=== PATIENT | female | born 1960 | race Caucasian/White ===

== ENCOUNTER 2020-03-28 12:41 | Emergency (ER) | payer OTHER, SELFPAY ==
--- NOTE | ~2020-03-28 | CT_ITS ---
EXAMINATION: CT brain wo con INDICATION: Headache COMPARISON: 06/26/2018 TECHNIQUE: Standard unenhanced head CT. The dose-length product (DLP) was 605.33 mGy-cm. The mA was a djusted according to patient size. Iterative reconstruction technique was employed. FINDINGS: There is no intracranial hemorrhage, acute infarction, or abnormal mass lesion. The ventric les are normal. There is no abnormal mass effect or midline shift. The cunningham-white matter differentiat ion is normal. The basal cisterns are patent. The orbits are normal. The paranasal sinuses, mastoids and calvarium are normal. IMPRESSION: 1. No acute intracranial abnormality. Reviewed, dictated and finalized at location A.
[2020-03-28 12:39] VITALS: BP 157/104; PULSE 89; RESP 18; TEMP 37; O2SAT 96
--- NOTE | 2020-03-28 12:43 | ECG_ITS ---
Measurements Intervals [place] Rate: 77 P: 74 LA: 137 QRS: 57 QRSD: 70 T: 99 QT: 405 QTc: 459 Interpretive Statements SINUS RHYTHM EARLY PRECORDIAL R/S TRANSITION NONSPECIFIC T-WAVE ABNORMALITY- HIGH LATERAL LEADS BORDERLINE ECG Electronically Signed On 03-28-2020 13:47:28 CDT by Adrian Spain D.O.
[2020-03-28 12:57] LABS: Basophils Percent Auto 0.7 % (0.2-1.2); Eosinophils Absolute Auto 0.1 K/mm3 (0-0.3); Hematocrit 42.9 % (37.0-47.0); Immature Granulocyte Absolute 0.01 K/mm3 (0.00-0.031); Immature Granulocyte Percent A 0.2 % (0-0.5); Lymphocytes Absolute Auto 2.02 K/mm3 (0.9-3.2); Lymphocytes Percent Auto 36.7 % (18.3-44.2); Mean Corpuscular HGB Conc 32.6 g/dl (32-36); Mean Corpuscular Hemoglobin 32.8 pg (26-34); Mean Corpuscular Volume 100.5 fl (80-100); Mean Platelet Volume 10.1 fl (7.4-10.4); Monocytes Absolute Auto 0.3 K/mm3 (0.1-0.6); Neutrophils Percent Auto 54.4 % (45.5-73.1); Platelet Count Result 264 k/mm3 (150-375); Red Blood Count 4.27 M/mm3 (4.2-5.4); Red Cell Distribution Width 14.5 % (11.5-14.5); White Blood Count 5.5 K/mm3 (4.5-10.0)
[2020-03-28] MEDS: SODIUM CHLORIDE 0.9% IV 1,000 ML 999 ML IV CONT (12:57)
[2020-03-28] MEDS: FAMOTIDINE 20 MG/2 ML VIAL IV PUSH (12:57)
[2020-03-28] MEDS: ONDANSETRON INJ 4 MG/2 ML VIAL IV PUSH (12:57)
[2020-03-28 13:06] LABS: INR 0.9; Prothrombin Time 11.6 Seconds (11.1-14.7)
[2020-03-28 13:08] LABS: Partial Thromboplastin Time 24.6 SECONDS (22.3-36.8)
[2020-03-28 13:09] LABS: Alanine Aminotransferase 103 U/L (4-35); Albumin Level 4.6 g/dL (3.5-5.1); Alkaline Phosphatase 191 U/L (38-126); Anion Gap 16.6 mmol/L (7-16); Aspartate Amino Transferase 174 U/L (14-36); Bilirubin,Total 0.3 mg/dL (0.2-1.3); Blood Urea Nitrogen 7 mg/dL (7-17); Calcium 8.6 mg/dL (8.4-10.2); Carbon Dioxide 24 mmol/L (22-30); Chloride 101 mmol/L (98-107); Estimated CRCL calculation 81 ml/min; Estimated Glomerular Filt Rate > 60; Glucose 102 mg/dL (65-105); Lipase 129 U/L (23-300); Potassium 3.6 mmol/L (3.4-5.0); Sodium 138 mmol/L (137-145)
--- NOTE | 2020-03-28 14:15 | ED.ALCOHOL ---
HPI - Alcohol General Chief Complaint: Alcohol <Kunal Pham PA-C - Last Filed: 03/28/20 16:01> Stated Complaint: shakes <Kunal Pham PA-C - Last Filed: 03/28/20 16:01> Time Seen by Provider: 03/28/20 12:46 <RANCHO Conn Last Filed: 03/28/20 16:01> Source: patient and EMS <RANCHO Conn Last Filed: 03/28/20 16:01> Mode of arrival: EMS <RANCHO Conn Last Filed: 03/28/20 16:01> Limitations: no limitations <Kunal Pham PA-C - Last Filed: 03/28/20 16:01> History of Present Illness HPI narrative: Patient is a 59-year-old female who presents to emergency department for evaluation of nervousness and tremulousness that began this morning with shaking anxiety and nausea patient notes history of alcohol abuse and notes that she was intoxicated prior night patient notes she has typically not had shaking the next day to this degree patient denies vomiting diarrhea URI symptoms or other complaints denies injury or trauma and is resting comfortably in the room upon arrival in no distress has not taken anything for her symptoms denies any alcohol abuse today patient lives at home with her partner <Kunal Pham PA-C - Last Filed: 03/28/20 16:01> Related Data Allergies/Adverse Reactions: Allergies Allergy/AdvReac Type Severity Reaction Status Date / Time No Known Allergies Allergy Verified 03/28/20 12:44 <Kunal Pham PA-C - Last Filed: 03/28/20 16:01> Review of Systems Review of Systems: All systems reviewed & are unremarkable except as noted in HPI and below <Kunal Pham PA-C - Last Filed: 03/28/20 16:01> [facility] Past Medical History Medical History: Medical History (Updated 03/28/20 @ 16:01 by Kunal Pham PA-C) Anxiety COPD (chronic obstructive pulmonary disease) Depression Obesity <RANCHO Conn Last Filed: 03/28/20 16:01> Social History Social History: Social History Smoking status: Current every day smoker Alcohol intake: current <RANCHO Conn Last Filed: 03/28/20 16:01> Exam Narrative: Exam Narrative: GENERAL: Well-appearing, obese, and in no acute distress. HEAD: Normocephalic, atraumatic. EYES: PERRLA and EOMI. ENT: Nares clear, no rhinorrhea or epistaxis. Mucous membranes moist. Oropharynx without tonsillar hypertrophy exudate or other lesions. NECK: Supple. No adenopathy or masses. CHEST: Clear to auscultation. No respiratory distress. No wheezes rales or rhonchi HEART: Regular rate and rhythm. No murmur heard. Normal peripheral pulses. ABDOMEN: Soft, nontender,distended. EXTREMITIES: Normal range of motion. No edema. SKIN: Warm, dry, no rash. NEURO: No focal deficits. Alert and oriented x3. Cranial nerves II through XII grossly intact, neurovascularly intact. Normal speech PSYCH: Acutely anxious normal affect <RANCHO Conn Last Filed: 03/28/20 16:01> Course Course Emergency Course: Patient in the room at this time in no distress been hydrated resting comfortably in the room in no distress aware of case findings treatment plan and diagnosis feeling better with interventions <RANCHO Conn Last Filed: 03/28/20 16:01> Reevaluation(s) Reevaluation #1: Patient was in the hallway using the phone and upon returning to her room slipped and injured the left knee where she sustained an abrasion to the left knee denies any other complaints notes minimal pain at the abrasion <RANCHO Conn Last Filed: 03/28/20 16:01> Date: 03/28/20 <RANCHO Conn Last Filed: 03/28/20 16:01> Time: 14:19 <RANCHO Conn Last Filed: 03/28/20 16:01> Vital Signs Vital signs: Vital Signs Temperature 98.6 F 03/28/20 12:39 Pulse Rate 89 03/28/20 12:39 Respiratory Rate 18 03/28/20 12:39 Blood Pressure 157/104 H 03/28/20 12:3
[2020-03-28 14:19] LABS: Add Urine Microscopic? YES; Appearance Urine Clear (Clear); Bilirubin Urine Negative (Negative); Blood Urine 2+ (Negative); Color Urine Yellow (Yellow); Glucose Urine UA Negative (Negative); Ketones Urine Negative (Negative); Leukocyte Esterase Ur Negative LEU/UL (Negative); Mucus Urine Rare /lpf; Nitrate Urine Negative (Negative); Protein Urine Negative (Negative); Specific Grav Ur 1.014 (1.001-1.035); Squamous Epithelial Cell Urine Moderate /hpf (Few); Urobilinogen Urine Negative mg/dL (<2.0)
[2020-03-28 14:32] LABS: Amphetamine Screen Urine Negative (Negative); Barbiturate Screen Urine Negative (Negative); Benzodiazepines Screen Urine Negative (Negative); Cannabinoid Screen Urine Negative (Negative); Cocaine Screen Urine Negative (Negative); Methadone Screen Urine Negative (Negative); Opiate Screen Urine Positive (Negative); Phencyclidine Screen Urine Negative (Negative)
[2020-03-28 14:39] VITALS: BP 140/55; PULSE 88; RESP 18; O2SAT 96
[2020-03-28 17:03] VITALS: BP 147/78; PULSE 86; RESP 18; O2SAT 97
== END 2020-03-28 17:05 | disposition home or self-care (01) ==
PROVIDERS: Emergency Medicine Emergency Medical Services; Emergency Provider General Practice; PCP Student in an Organized Health Care Education/Training Program
DX: F41.9 Anxiety disorder, unspecified (principal); F10.10 Alcohol abuse, uncomplicated; J44.9 Chronic obstructive pulmonary disease, unspecified; E66.9 Obesity, unspecified; Z68.32 Body mass index [BMI] 32.0-32.9, adult; F17.200 Nicotine dependence, unspecified, uncomplicated; R94.31 Abnormal electrocardiogram [ECG] [EKG]; S80.212A Abrasion, left knee, initial encounter; W01.0XXA Fall on same level from slipping, tripping and stumbling without subsequent striking against object, initial encounter
CPT/HCPCS: 36415; 70450; 80053; 80307; 81001; 83690; 85025; 85610; 85730; 93005; 96361; 96365; 96375; 99284; J2060; J2405; J3411; J3475; J7030; J7121